=== PATIENT | male | born 1945 | race Caucasian/White ===

== ENCOUNTER 2021-10-30 12:40 | Observation (INO) | payer MEDICARE, OTHER, SELFPAY ==
--- NOTE | ~2021-10-30 | US_ITS ---
US paracentesis abd w/image DATE: 10/31/2021 12:30 INDICATION: Ascites TECHNIQUE: The procedure, technique and potential complications were discussed with the patient. Poly ent gave consent. Ultrasound imaging revealed a satisfactory site for percutaneous access to the ascites in the right l ower anterior abdominal wall. The skin was prepared with sterile Betadine. Sterile drape was applied. 1% lidocaine local anesthetic was a video game programmer the skin and underlying subcutaneous tissues. A single stick paracentesis needle/catheter was introduced into the peritoneal cavity uneventfully. T he catheter was advanced over the needle and the needle withdrawn. 5 L of clear yellowish ascites was drained uneventfully. The patient tolerated the procedure very well, without apparent complication. COMPARISON: 10/30/2021 CT abdomen pelvis IMPRESSION: Ultrasound-guided uncomplicated percutaneous drainage of 5 L of clear yellowish ascites Reviewed, dictated and finalized at [facility] Reviewed, dictated and finalized at [facility] RESOURCE SPECIALIST IMPRESSION: Ultrasound-guided uncomplicated percutaneous drainage of 5 L of ramona ar yellowish ascites
--- NOTE | ~2021-10-30 | CT_ITS ---
EXAMINATION: CT abdomen pelvis wo con DATE: 10/30/2021 15:29 INDICATION: Abdominal distention TECHNIQUE: Computed tomography (CT) of the abdomen and pelvis was performed without intravenous contr ast. Automated exposure control and iterative reconstruction technique were employed. The dose-length product was 1093.73 mGy-cm. COMPARISON: 10/10/2014 FINDINGS: Small left pleural effusion. Lung bases are otherwise clear. Heart size is normal. Atherosclerotic co ronary artery calcifications along with change of prior median sternotomy and coronary artery bypass grafting. No pericardial or pleural effusion. Anemia with decreased attenuation the blood pool relati ve to the myocardium. Shrunken and nodular cirrhotic liver with large amount of ascites throughout th e abdomen and pelvis. 1.5 cm low-attenuation lesion in segment 6 of the liver without significant levar nge since the prior study suggesting a benign etiology most likely hemangioma. Splenomegaly measuring 20 cm in length. This along with a prominent likely recanalized umbilical vein and gastrohepatic col laterals with distal esophageal varices all consistent with secondary portal venous hypertension. Gal lbladder, pancreas, bilateral adrenal glands and right kidney are normal. Unchanged subcentimeter rim calcified likely exophytic cyst at the lower pole of the otherwise normal left kidney. Bladder is no rmal. There is prominent colonic diverticulosis with a sigmoid predominance. There is no adjacent in flammatory change to suggest diverticulitis. No dilated bowel to suggest obstruction. Small fat-conta ining left inguinal hernia. Ascites extends into a moderate-sized right inguinal hernia. No free intr aperineal gas or likely fluid collections to suggest abscess. No pathologically enlarged abdominal or pelvic lymphadenopathy. Bilateral vertical john and pedicle screw fixation for posterior spinal fusio n at L5-S1 with 6 mm anterolisthesis L5 on S1. 4 mm retrolisthesis L4 on L5 with mild to moderate lum bar and lower thoracic spondylosis. IMPRESSION: 1. Cirrhosis with associated portal venous hypertension characterized by splenomegaly and lower esoph ageal varices. 2. Large amount of ascites. 3. Small left pleural effusion. 4. Diverticulosis. 5. Bilateral inguinal hernias containing fat on the left and larger containing fat and ascites on the right. Reviewed, dictated and finalized at [facility] IFIED ADAPTED PHYSICAL EDUCATOR IMPRESSION: 1. Cirrhosis with associated portal venous hypertension characterized by spleno megaly and lower esophageal varices. 2. Large amount of ascites. 3. Small left pleural effusion. 4. Diverticulosis. 5. Bilateral inguinal hernias containing fat on the left and larger containing fat and ascites on the right.
--- NOTE | ~2021-10-30 | XR_ITS ---
EXAMINATION: XR chest 1V DATE: 10/30/2021 15:33 INDICATION: Shortness of breath. Lightheadedness. Cirrhosis. TECHNIQUE: frontal view of the chest was obtained. COMPARISON: Chest radiograph and CT dated 10/10/2014 FINDINGS: Asymmetric subtle hazy opacity at the left lower lung zone which could represent small left pleural e ffusion. Mild streaky opacities at both lung bases consistent with atelectasis and/or pneumonia. No p neumothorax. Cardiomediastinal silhouette is within normal limits for AP technique. Median sternotomy wires, ostial markers and mediastinal surgical clips consistent with prior coronary artery bypass gr afting. Status post right acromioplasty and lateral right clavicle resection. IMPRESSION: 1. Opacities in the left lower lung zone and along the bilateral lung bases suggesting small left ple ural effusion and bibasilar atelectasis versus pneumonia. Reviewed, dictated and finalized at [facility]. LOPE SEALER IMPRESSION: 1. Opacities in the left lower lung zone and along the bilateral lung bases sug gesting small left pleural effusion and bibasilar atelectasis versus pneumonia.
[2021-10-30 13:07] VITALS: BP 123/63; PULSE 85; RESP 20; TEMP 36.3; O2SAT 99
--- NOTE | 2021-10-30 15:17 | ED.ABDPAIN ---
HPI - Abdominal Pain General Chief Complaint: Shortness of Breath/Dyspnea Stated Complaint: SOB, abd swelling, liver disease Time Seen by Provider: 10/30/21 15:11 Source: patient Mode of arrival: ambulatory Limitations: no limitations History of Present Illness HPI narrative: Patient is a 76-year-old male complaining of increasing abdominal distention x1 week. Patient states that he has a history of liver cirrhosis and has been getting paracentesis weekly, last time he had 8 L taken out of his abdomen. Patient states his shortness of breath is related to his abdominal distention which is pushing into his lungs, which is typical whenever he needs paracentesis. Patient denies chest pain, abdominal pain, nausea, vomiting, fever or chills. Patient states he lives in [place] and just visiting, has been here for a week. Related Data Home Medications Medication Instructions Recorded Confirmed albuterol sulfate INHALATION 10/30/21 aspirin [Adult Aspirin] 81 mg PO DAILY 10/30/21 10/30/21 atorvastatin 10/30/21 cholecalciferol (vitamin D3) 25 mcg PO DAILY 10/30/21 10/30/21 [Vitamin D3] donepezil mg 10/30/21 escitalopram oxalate mg 10/30/21 [id number]-[id number] INHALATION 10/30/21 [Trelegy Ellipta] furosemide 10/30/21 insulin glargine [Basaglar KwikPen SUBCUT 10/30/21 U-100 Insulin] metoprolol tartrate 10/30/21 pantoprazole PO 10/30/21 potassium mg 10/30/21 10/30/21 rifaximin [Xifaxan] mg 10/30/21 tamsulosin mg PO 10/30/21 Allergies Allergy/AdvReac Type Severity Reaction Status Date / Time No Known Allergies Allergy Unknown Verified 10/30/21 13:13 Review of Systems Review of Systems: All systems reviewed & are unremarkable except as noted in HPI and below Constitutional: Constitutional: Denies body ache(s), Denies chills, Denies excessive sweating, Denies fatigue, Denies fever(s), Denies headache(s), Denies lethargy, Denies malaise, Denies weakness and Denies weight loss Eyes: Eyes: Denies blurry vision, Denies change in vision and Denies loss of vision ENT: Denies dizziness, Denies ear discharge, Denies headache(s), Denies lip swelling, Denies epistaxis, Denies nasal congestion, Denies neck pain, Denies throat swelling and Denies tongue swelling Cardiovascular: Cardiovascular: Denies chest pain, Denies chest pain at rest, Denies chest pain with activity, Denies diaphoresis, Denies rapid heart rate, Denies edema, Denies irregular heart rhythm, Denies lightheadedness and Denies palpitations Respiratory: Respiratory: Denies chest congestion, Denies cough and Denies hemoptysis Gastrointestinal: Gastrointestinal: Denies abdominal pain, Denies melena, Denies hematochezia, Denies diarrhea, Denies nausea, Denies vomiting and Denies hematemesis Musculoskeletal: Musculoskeletal: Denies abnormal gait, Denies deformity, Denies joint swelling, Denies limited range of motion, Denies neck pain and Denies numbness Neurologic: Denies Abnormal speech present, Denies abnormal gait, Denies confusion, Denies dizziness, Denies headache(s), Denies focal weakness, Denies loss of vision, Denies numbness, Denies Other visual disturbances, Denies Sensory deficit (Neuro) and Denies weakness Psychiatric: Psychiatric: Denies confusion, Denies depression, Denies auditory hallucinations, Denies homicidal ideation and Denies suicidal ideation Endocrine: Endocrine: Denies cold intolerance, Denies excessive sweating, Denies fatigue, Denies heat intolerance and Denies palpitations Hematologic/Lymphatic: Hematologic/Lymphatic: Denies easy bleeding and Denies easy bruising Allergic/Immunologic: Allergic/Immunologic: Denies lip swelling, Denies throat swelling and Denies tongue swelling [facility], [facility] Family History Family History (Updated 10/10/17 @ 11:34 by DOCTOR UNKNOWN) Father Patient's father is , Onset Age: 71 Social History Social History Smoking status: Former smoker Second hand tobacco smoke exposure: No
[2021-10-30 15:51] VITALS: BP 124/74; PULSE 64; RESP 18; O2SAT 99
[2021-10-30 15:55] LABS: Basophils Percent Auto 0.4 % (0.2-1.2); Eosinophils Absolute Auto 0.1 K/mm3 (0-0.3); Eosinophils Percent Auto 1.5 % (0-4.4); Hematocrit 34.3 % (42.0-52.0); Hemoglobin 10.8 g/dL (14.0-18.0); Immature Granulocyte Absolute 0.02 K/mm3 (0.00-0.031); Immature Granulocyte Percent A 0.4 % (0-0.5); Immature Platelet Fraction Pct 5.4 % (0.9-11.2); Lymphocytes Absolute Auto 0.66 K/mm3 (0.9-3.2); Lymphocytes Percent Auto 12.7 % (18.3-44.2); Mean Corpuscular HGB Conc 31.5 g/dl (32-36); Mean Corpuscular Hemoglobin 24.5 pg (26-34); Mean Platelet Volume 11.2 fl (7.4-10.4); Monocytes Absolute Auto 0.7 K/mm3 (0.1-0.6); Monocytes Percent Auto 13.7 % (2.6-8.5); Neutrophils Absolute Auto 3.7 K/mm3 (1.3-6.7); Neutrophils Percent Auto 71.3 % (45.5-73.1); Platelet Count Result 102 k/mm3 (150-375); Red Cell Distribution Width 17.9 % (11.5-14.5); White Blood Count 5.2 K/mm3 (4.5-10.0)
[2021-10-30 16:03] LABS: Alanine Aminotransferase 25 U/L (4-50); Albumin Level 2.8 g/dL (3.5-5.1); Alkaline Phosphatase 104 U/L (38-126); Anion Gap 7 mmol/L (8-16); Aspartate Amino Transferase 39 U/L (17-59); Bilirubin,Total 1.1 mg/dL (0.2-1.3); Blood Urea Nitrogen 23 mg/dL (9-20); Calcium 8.5 mg/dL (8.4-10.2); Carbon Dioxide 27 mmol/L (22-30); Chloride 94 mmol/L (98-107); Estimated Glomerular Filt Rate > 60; Glucose 181 mg/dL (65-110); Potassium 3.4 mmol/L (3.4-5.0); Sodium 128 mmol/L (137-145)
[2021-10-30 16:05] LABS: INR 1.4; Prothrombin Time 17.3 Seconds (11.1-14.7)
[2021-10-30 16:06] LABS: Partial Thromboplastin Time 34.1 SECONDS (22.3-36.8)
[2021-10-30 18:30] VITALS: BP 102/50; PULSE 55; RESP 18; O2SAT 99
--- NOTE | 2021-10-30 18:30 | PM.IMHP ---
H&P: HPI History of Present Illness Date/Time: 10/30/21 18:30 Chief Complaint: Shortness of breath and increasing ascites. Narrative: This is a very pleasant 76-year-old male with cirrhosis related to ALAMO, insulin-dependent diabetes, coronary artery disease, and COPD who presented to the emergency department earlier today via private vehicle for evaluation of shortness of breath and increasing ascites. The patient and his are visiting from [place] and they have been here for a little bit over a week. Since that time the patient has had increasing abdominal girth and progressive shortness of breath on lesser and lesser exertion related to accumulating ascites. He has a standing order in [place] for a paracentesis in which she typically have upwards of 8 L removed on an almost weekly basis, with his last being a little over a week ago. Unfortunately due to limited staff he was unable to have a paracentesis done today in the emergency department and he is being admitted overnight in hopes that 1 May be done early in the morning per IR. He has no other complaints and denies fever, chills, sweats, cold and flu symptoms, chest pain, pleuritic pain, palpitations, cough, nausea, vomiting, diarrhea, and dysuria. Review of Systems Review of Systems: Twelve systems were reviewed and are negative except for as per HPI. [facility] Past Medical History Medical History (Updated 10/30/21 @ 22:13 by Kimmy Worthington PA-C) Benign prostatic hyperplasia Chronic anemia History of blood transfusions. 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 Code status: Full code. Smoking status: Former smoker Second hand tobacco smoke exposure: No Smoking end date: 11/07/98 Alcohol intake: never Substance use: never Additional living arrangements comments: Originally from this area however he and his now living in [place], [place]. Additional occupation/education comments: Retired. Meds Home Medications and Allergies Home Medications Medication Instructions Recorded Confirmed Type sertraline 50 mg tablet 50 mg PO DAILY #90 tablet 12/11/19 Rx albuterol sulfate INHALATION 10/30/21 History aspirin [Adult Aspirin] 81 mg PO DAILY 10/30/21 10/30/21 History atorvastatin 10/30/21 History cholecalciferol (vitamin D3) 25 mcg PO DAILY 10/30/21 10/30/21 History [Vitamin D3] donepezil mg 10/30/21 History escitalopram oxalate mg 10/30/21 History [id number]-apozlufey-sgfjtdlf INHALATION 10/30/21 History [Trelegy Ellipta] furosemide 10/30/21 History insulin glargine [Basaglar KwikPen SUBCUT 10/30/21 History U-100 Insulin] metoprolol tartrate 10/30/21 History pantoprazole PO 10/30/21 History potassium mg 10/30/21 10/30/21 History rifaximin [Xifaxan] mg 10/30/21 History tamsulosin mg PO 10/30/21 History Allergies Allergy/AdvReac Type Severity Reaction Status Date / Time No Known Allergies Allergy Unknown Verified 10/30/21 13:13 Vital Signs Vital Signs - 24 hr 10/30/21 13:07 10/30/21 15:51 10/30/21 18:30 Temperature 97.4 F L Pulse Rate 85 64 55 L Respiratory Rate 20 18 18 Blood Pressure 123/63 124/74 102/50 L Pulse Oximetry 99 99 99 10/30/21 18:52 10/30/21 20:49 Temperature 98.9 F Pulse Rate 64 Respirato
[2021-10-30 18:52] VITALS: O2SAT 100
[2021-10-30 20:49] VITALS: BP 105/55; PULSE 64; RESP 18; TEMP 37.2; O2SAT 98; BMI 28.1
[2021-10-31 05:35] VITALS: BP 104/55; PULSE 64; RESP 18; TEMP 36.8; O2SAT 98
[2021-10-31 06:24] LABS: Hematocrit 32.9 % (42.0-52.0); Hemoglobin 10.4 g/dL (14.0-18.0); Immature Platelet Fraction Pct 5.3 % (0.9-11.2); Mean Corpuscular HGB Conc 31.6 g/dl (32-36); Mean Corpuscular Hemoglobin 24.5 pg (26-34); Mean Corpuscular Volume 77.4 fl (80-100); Mean Platelet Volume 11.1 fl (7.4-10.4); Platelet Count Result 89 k/mm3 (150-375); Red Blood Count 4.25 M/mm3 (4.6-6.20); White Blood Count 3.1 K/mm3 (4.5-10.0)
[2021-10-31 06:32] LABS: INR 1.5; Prothrombin Time 17.6 Seconds (11.1-14.7)
[2021-10-31 06:33] LABS: Partial Thromboplastin Time 39.1 SECONDS (22.3-36.8)
[2021-10-31 06:47] LABS: Alanine Aminotransferase 20 U/L (4-50); Albumin Level 2.4 g/dL (3.5-5.1); Alkaline Phosphatase 85 U/L (38-126); Anion Gap 5 mmol/L (8-16); Aspartate Amino Transferase 32 U/L (17-59); Bilirubin,Total 0.9 mg/dL (0.2-1.3); Blood Urea Nitrogen 24 mg/dL (9-20); Calcium 8.1 mg/dL (8.4-10.2); Carbon Dioxide 29 mmol/L (22-30); Chloride 96 mmol/L (98-107); Estimated CRCL calculation 60 ml/min; Estimated Glomerular Filt Rate > 60; Glucose 200 mg/dL (65-110); Magnesium 1.8 mg/dL (1.6-2.3); Potassium 3.1 mmol/L (3.4-5.0); Sodium 130 mmol/L (137-145)
[2021-10-31 07:43] LABS: Glucose Point of Care 168 mg/dl (65-105)
[2021-10-31 11:37] LABS: Glucose Point of Care 201 mg/dl (65-105)
[2021-10-31] MEDS: ALBUMIN HUMAN 25% 25 GM/100 ML 200 ML IVPB (13:51)
[2021-10-31] MEDS: INSULIN ASPART (*BKC) 100 UNITS/ML SUB-Q (13:59)
--- NOTE | 2021-10-31 14:14 | PM.DS ---
DS: Admitting Diagnosis Discharge Date 10/31/2021 Admitting Diagnosis Ascites DS: Discharge Diagnosis Discharge Diagnosis (1) Ascites: Qualifiers: Ascites type: other type Qualified Code(s): R18.8 - Other ascites Code(s): R18.8 - Other ascites Status: Acute Assessment and Plan: Patient is becoming symptomatic with his accumulating ascites. He was admitted for therapeutic paracentesis by IR and took out 5 L of ascitic fluid on 10/31/2021. His blood pressure stable up post paracentesis. Due to large volume paracentesis was given 25 g of albumin during the hospital stay prior to discharge. He gets this every week down in [place] where he is planning to go next week. 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 No evidence of acute decompensation. (3) Chronic anemia: Code(s): D64.9 - Anemia, unspecified Status: Acute Assessment and Plan: Hemoglobin and hematocrit are within acceptable range. (4) Insulin dependent type 2 diabetes mellitus: Code(s): E11.9 - Type 2 diabetes mellitus without complications; Z79.4 - terminal block assembler (current) use of insulin Status: Acute Assessment and Plan: Continue basal insulin. Initiate sliding scale insulin, Accu-Cheks, and hypoglycemic protocol. (5) Chronic obstructive pulmonary disease: Code(s): J44.9 - Chronic obstructive pulmonary disease, unspecified Status: Acute Assessment and Plan: No acute issues. Continue home maintenance inhalers. (6) Hyponatremia: Code(s): E87.1 - Hypo-osmolality and hyponatremia Status: Acute Assessment and Plan: Related to liver disease and volume overload. DS: Summary Hospital Course Hospital Course: See above Time Spent with Patient Time attestation: Total time spent providing and/or coordinating discharge services: 45 minutes Exam Narrative: General: Well-developed elderly male supine in bed in no distress. HEENT: Wearing hearing aids. PERRL, EOMI. Sclerae anicteric. Oral mucosa moist. Oropharynx clear. Neck: Supple. Respiratory: Lungs are clear to auscultation bilaterally. Lung sounds are a bit diminished at the bases but are otherwise clear to auscultation. Cardiovascular: Regular rate and rhythm with S1-S2. Well-healed sternotomy. Gastrointestinal: Abdomen is slightly firm and protuberant positive fluid wave and dullness to percussion. No tenderness to palpation. No voluntary guarding or rebound tenderness. Positive bowel sounds. Skin: Warm and dry. No rash or lesions on limited exam. Extremities: No cyanosis or clubbing. Trace jovanna ankle edema bilaterally. Radial and pedal pulses intact. Negative Pavithra sign bilaterally. Neurological: Alert. Cranial nerves 2-12 are grossly intact. No gross focal deficits to casual conversation. Psychiatric: Pleasant and cooperative with normal mood and affect. DS: Data Data Completed and Pending Labs on day of discharge: Labs from last 24 hours 10/31/21 10/31/21 10/31/21 11:30 07:35 05:19 WBC RBC Hgb Hct MCV MCH MCHC RDW Plt Count MPV Immature Gran % (Auto) Neut % (Auto) Lymph % (Auto) Johnston % (Auto) Eos % (Auto) Baso % (Auto) Lymph # (Auto) Johnston # (Auto) Eos # (Auto) Baso # (Auto) Abs Immat Gran (auto) Absolute Neuts (auto) Absolute Nucleated RBC Nucleated RBC % % Immature Plt Fraction PT INR APTT Sodium 130 L Potassium 3.1 L Chloride 96 L Carbon Dioxide 29 Anion Gap 5 L BUN 24 H Creatinine 0.90 Estim Creat Clear Calc 60 Estimated GFR > 60 Glucose 200 H POC Capillar
== END 2021-10-31 15:30 | disposition home or self-care (01) ==
LOC: ANHED 17:13 → ANH3MEDSUR 10-31 13:01
PROVIDERS: Physician Assistant; Admitting Provider Internal Medicine; Emergency Provider Emergency Medicine; Visit Provider Internal Medicine
DX: R18.8 Other ascites (principal); K75.81 Nonalcoholic steatohepatitis (NASH); K74.60 Unspecified cirrhosis of liver; R06.02 Shortness of breath; D64.9 Anemia, unspecified; E11.9 Type 2 diabetes mellitus without complications; E87.1 Hypo-osmolality and hyponatremia; I10 Essential (primary) hypertension; I25.10 Atherosclerotic heart disease of native coronary artery without angina pectoris; J44.9 Chronic obstructive pulmonary disease, unspecified; J90 Pleural effusion, not elsewhere classified; K40.20 Bilateral inguinal hernia, without obstruction or gangrene, not specified as recurrent; Z79.4 Long term (current) use of insulin; Z87.891 Personal history of nicotine dependence; Z95.1 Presence of aortocoronary bypass graft
CPT/HCPCS: 36415; 49083; 71045; 74176; 80053; 82948; 83735; 85025; 85027; 85055; 85610; 85730; 96374; 99285; G0378; J1815; P9047